=== PATIENT | female | born 1955 | race Two or more races ===

== ENCOUNTER 2019-11-08 14:24 | Inpatient (IN) | payer OTHER ==
[~2019-11-08] VITALS: Ht 154.9 cm; Wt 60.8 kg
[2019-11-08 18:13] LABS: BASOPHILS % 0.8 % (0.0-2.0); HEMATOCRIT. 43.9 % (36.0-48.0); LYMPHOCYTES % 20.2 % (20.0-50.0); MEAN CORPUSCULAR HEMOGLOBIN 34.3 pg (28.0-32.0); MEAN CORPUSCULAR VOLUME 99.9 fL (81.0-99.0); MEAN PLATELET VOLUME 9.6 fl (7.4-10.4); MONOCYTES % 5.6 % (2.0-8.0); NEUTROPHILS % 72.4 % (40.0-76.0); PLATELET 315 x1000/uL (130-400); RED BLOOD CELL COUNT 4.39 mill/uL (4.2-5.4); RED CELL DISTRIBUTION WIDTH 13.7 % (11.6-14.6)
[2019-11-08 18:15] LABS: CHLORIDE 100 mEq/L (98-107)
[2019-11-08] MEDS ORDERED: CLONIDINE 0.2MG TABLET PO ONE (19:00)
[2019-11-09] MEDS ORDERED: FAMOTIDINE 20MG/2ML VIAL IV SCH (02:00)
[2019-11-09 10:00] VITALS: BP 154/99
[2019-11-09] MEDS ORDERED: CLONIDINE 0.1MG TABLET PO PRN (11:30)
[2019-11-09] MEDS ORDERED: ONDANSETRON HCL 4MG/2ML INJ IV PRN (11:30)
[2019-11-09 11:40] VITALS: BP 124/91
[2019-11-09] MEDS ORDERED: HYDR25TA MT (11:57)
[2019-11-09] MEDS ORDERED: MULT-1146 MT (12:00)
[2019-11-09 15:54] LABS: HEMATOCRIT 44.6 % (36.0-48.0); HEMOGLOBIN 15.5 g/dL (12.0-16.0); MEAN CORPUSCULAR HEMOGLOBIN 34.7 pg (28.0-32.0); MEAN CORPUSCULAR VOLUME 99.8 fL (81.0-99.0); PLATELET 308 x1000/uL (130-400); RED BLOOD CELL COUNT 4.47 mill/uL (4.2-5.4); RED CELL DISTRIBUTION WIDTH 13.5 % (11.6-14.6)
[2019-11-09 16:00] VITALS: BP 139/101
[2019-11-09 19:59] VITALS: BP 167/101
[2019-11-09] MEDS ORDERED: CLON0.1T PO (20:40)
[2019-11-09] MEDS ORDERED: HEPARIN 5000 UNITS/ML VIAL SUBCUT SCH (21:00)
[2019-11-10] MEDS ORDERED: AMLODIPINE 10MG TABLET PO SCH (09:00)
== END 2019-11-09 21:23 | disposition home or self-care (01) | DRG 683 ==
LOC: ER 14:24 → 7WST 23:30 → EDBEDREQ 23:35 → EDBEDREQTM 23:35 → ENRESERV 11-09 07:59
PROVIDERS: ADMIT Internal Medicine; ATTEND Internal Medicine
DX: I12.9 Hypertensive chronic kidney disease with stage 1 through stage 4 chronic kidney disease, or unspecified chronic kidney disease (principal); N17.9 Acute kidney failure, unspecified; N18.9 Chronic kidney disease, unspecified; F41.9 Anxiety disorder, unspecified; R79.89 Other specified abnormal findings of blood chemistry; Z82.49 Family history of ischemic heart disease and other diseases of the circulatory system; Z83.3 Family history of diabetes mellitus; Z87.440 Personal history of urinary (tract) infections; Z79.899 Other long term (current) drug therapy; Z72.0 Tobacco use
CPT/HCPCS: 36415; 71045; 80048; 80053; 83880; 84484; 85025; 85027; 93005; 96374; 96375; 99285; J2405; J3490